=== PATIENT | male | born 1985 | race African-American/Black ===

== ENCOUNTER 2019-06-11 23:48 | Emergency (ER) | payer SELFPAY ==
[~2019-06-11] VITALS: Ht 177 cm; Wt 85.0 kg
[2019-06-11 23:55] VITALS: BP 113/67
[2019-06-12] MEDS ORDERED: AMOXICILLIN 500 MG (POLYMOX) CAP PO STA (00:06)
[2019-06-12] MEDS ORDERED: IBUPROFEN 800 MG (MOTRIN) TAB PO STA (00:06)
--- NOTE | 2019-06-12 00:14 | ED EENT ---
History of Present Illness General Chief Complaint: Dental Problems/Pain Stated Complaint: DENTAL PAIN Source: patient Exam Limitations: no limitations History of Present Illness Date Seen by Provider: Jun 11, 2019 Time Seen by Provider: 23:55 Initial Comments Here with report of pain in the right upper posterior aspect where he feels like there is a screw loose and it's poking him. Apparently had a broken jaw a year ago in [place] and had dental appliance which appears to be a bar to the upper jaw placed. He has not sought follow-up since. States that he noted something wa s loose and it's poking him. Complaints of pain related to that. Denies other concerns. Timing/Duration: abrupt Severity: moderate Location: mouth, dental Associated Symptoms: facial pain/swelling; No fever Allergies and Home Medications Allergies Coded Allergies: No Known Drug Allergies (Unverified , 06/12/19) Patient Home Medication List Home Medication List Reviewed: Yes Review of Systems Review of Systems Constitutional: no symptoms reported Mouth: see HPI, pain; denies swelling Throat: no symptoms reported Respiratory: no symptoms reported Cardiovascular: no symptoms reported Past Spropbm-Mootru-Fattok Hx Past Med/Social Hx: Reviewed Nursing Past Med/Soc Hx Patient Social History Alcohol Use: Occasionally Uses Recent Foreign Travel: No Contact w/Someone Who Travel: No Past Medical History Surgeries: Yes Orthopedic Respiratory: No Cardiac: No Physical Exam Height, Weight, BMI Height: '" Weight: lbs. oz. kg; BMI Method: General Appearance: WD/WN, mild distress Mouth/Throat: other (has metal bar structure across the upper jaw in the upper gumline. Posterior aspect on the right has what appears to be a screw head that is mobile and seems to be causing him pain. This was grasped and easily removed from the tissue and noted to be appliance screw. Surrounding erythema noted but no purulent drainage.) Neck: full range of motion, supple Neurologic/Psychiatric: alert, oriented x 3 Skin: normal color, warm/dry Progress/Results/Core Measures Progress Progress Note : Progress Note Seen and evaluated. Inspection of mouth revealed loose screw to the posterior aspect on the right upper and the and of the orthopedic appliance bar that had been previously placed. This was grasped and easily removed by Arelis forceps. Given that this was within the tissue structure and does seem to be irritated, we will go ahead and initiate antibiotics to decrease chance of infection. Patient was urged to follow-up with oral maxillofacial surgery. I did give him information on who to call. We will initiate antibiotic outpatient. Was given amoxicillin 1000 mg by mouth now as well as hydrocodone 5/325 and ibuprofen 800 mg by mouth. Discharged home with return precautions. Patient verbalize understanding instructions and agreement with plan. Departure Impression Primary Impression: Foreign body in mouth, initial encounter Disposition: HOME, SELF-CARE Condition: Improved Departure-Patient Inst. Decision time for Depature: 00:14 Referrals: JANY BRAY DDS NO,LOCAL PHYSICIAN (PCP) Primary Care Physician Patient Instructions: Dental Pain (DC) Add. Discharge Instructions: All discharge instructions reviewed with patient and/or family. Voiced understanding. You have a screw that came loose from the end of the dental/orthopedic appliance that was applied when you had a broken jaw. This screw was removed. The tissue around there is slightly irritated so you will be initiated on antibiotics. Make sure that you pick those up at the pharmacy and take them as directed. You should continue to brush her teeth twice daily and rinse mouth with warm saltwater solution. You may make the salt water solution by putting 1 teaspoon of table salt and one cup of warm water. Rinse thoroughly inspected. Do not drink solution. It is important that you follow-up with dental surgeon. You may call the one listed or of your choosing and make appointment for recheck and further evaluation. You may take ibuprofen 800 mg every 8 hours as needed for pa in. You may also take Tylenol/acetaminophen 1000 mg every 8 hours as needed for pain. Return for worse pain, swelling, fever, foul-smelling drainage or other concerns as needed. Scripts Amoxicillin (Amoxicillin) 500 Mg Capsule 500 MG PO TID, #21 CAP 0 Refills Prov: LALITO MILLAN MD 06/12/19 LALITO MILLAN MD Jun 12, 2019 00:13
[2019-06-12] MEDS ORDERED: HYDROcodone/APAP 5 MG/325 MG (LORTAB) TAB PO ONE (00:15)
[2019-06-12] MEDS ORDERED: AMOX500C2 PO (00:16)
== END 2019-06-12 00:23 | disposition home or self-care (01) ==
LOC: ER 23:51
DX: T18.0XXA Foreign body in mouth, initial encounter (principal)
CPT/HCPCS: 99283

== ENCOUNTER → 2019-06-22 | Emergency (ER) | payer OTHER ==
[~2019-06-22] VITALS: Ht 180.3 cm; Wt 81.1 kg
[~2019-06-22] MED LIST: AMOX500C2 PO; ASPIRIN 81 MG CHEW (CHILDREN'S ASA) PO ONE; NITROGLYCERIN 0.4 MG SL TABS BTL 25'S SL ONE; NS IV 1000 ML 1,000 ML IV SCH
[2019-06-22 10:42] VITALS: BP 123/85
[2019-06-22 11:06] LABS: BASOPHILS % (AUTO) 0 % (0-10); EOSINOPHILS % (AUTO) 0 % (0-10); HEMATOCRIT 45 % (40-54); HEMOGLOBIN 15.4 G/DL (13.3-17.7); LYMPHOCYTES % (AUTO) 13 % (12-44); MEAN CORPUSCULAR HEMOGLOBIN 27 PG (25-34); MEAN CORPUSCULAR HGB CONC 34 G/DL (32-36); MEAN CORPUSCULAR VOLUME 78 FL (80-99); MEAN PLATELET VOLUME 9.6 FL (7.4-10.4); MONOCYTES # (AUTO) 0.5 X 10^3 (0.0-1.0); MONOCYTES % (AUTO) 6 % (0-12); NEUTROPHILS # (AUTO) 6.6 X 10^3 (1.8-7.8); NEUTROPHILS % (AUTO) 81 % (42-75); PLATELET COUNT 393 10^3/uL (130-400); RED CELL DISTRIBUTION WIDTH 15.6 % (10.0-14.5); WHITE BLOOD COUNT 8.2 10^3/uL (4.3-11.0)
--- OUTSIDE RECORDS SUMMARY | 2019-06-22 11:06 | XMS REPORT | Continuity of Care Document ---
Author Organization Unknown Address Unknown Phone Unavailable Allergies Active Description Code Type Severity Reaction Onset Reported/Identified Relationship to Patient Clinical Status Yes No Known Drug Allergies [id number] Drug Allergy Unknown N/A 06/12/2019 Medications There is no data. Problems Date Dx Coded Attending Type Code Diagnosis Diagnosed By 06/12/2019 LALITO MILLAN MD Ot K08.89 OTHER SPECIFIED DISORDERS OF TEETH AND S 06/12/2019 LALITO MILLAN MD Ot T18.0XXA FOREIGN BODY IN MOUTH, INITIAL ENCOUNTER 06/14/2019 LALITO MILLAN MD Ot K08.89 OTHER SPECIFIED DISORDERS OF TEETH AND S 06/14/2019 LALITO MILLAN MD Ot T18.0XXA FOREIGN BODY IN MOUTH, INITIAL ENCOUNTER Procedures There is no data. Results There is no data. Encounters ACCT No. Visit Date/Time Discharge Status Pt. Type Provider Facility Loc./Unit Complaint [id number] 06/11/2019 23:51:00 020 00:23:00 DIS Emergency LALITO MILLAN MD [facility] ER DENTAL PAIN
[2019-06-22 11:12] LABS: PROTHROMBIN TIME PATIENT 13.1 SEC (12.2-14.7)
[2019-06-22 11:23] LABS: BILIRUBIN,URINE NEGATIVE (NEGATIVE); CLARITY,URINE CLEAR; COLOR,URINE YELLOW; GLUCOSE, URINE (UA) NEGATIVE (NEGATIVE); KETONES,URINE 1+ (NEGATIVE); LEUKOCYTE ESTERASE ,URINE NEGATIVE (NEGATIVE); NITRITE,URINE NEGATIVE (NEGATIVE); PH,URINE 5.5 (5-9); PROTEIN,URINE NEGATIVE (NEGATIVE)
[2019-06-22 11:23] LABS: ALANINE AMINOTRANSFERASE 37 U/L (0-55); ALBUMIN 4.6 GM/DL (3.2-4.5); ALKALINE PHOSPHATASE 56 U/L (40-136); AMYLASE 44 U/L (25-125); BILIRUBIN,TOTAL 0.5 MG/DL (0.1-1.0); BUN/CREATININE RATIO 10; CALCIUM 9.5 MG/DL (8.5-10.1); CARBON DIOXIDE 14 MMOL/L (21-32); CHLORIDE 99 MMOL/L (98-107); CREATINE KINASE 1079 U/L (30-200); CREATININE SERUM 1.45 MG/DL (0.60-1.30); GFR ESTIMATED > 60; GLUCOSE 78 MG/DL (70-105); LIPASE 13 U/L (8-78); MAGNESIUM 1.8 MG/DL (1.6-2.4); POTASSIUM 4.3 MMOL/L (3.6-5.0); SODIUM 133 MMOL/L (135-145); TOTAL PROTEIN 8.1 GM/DL (6.4-8.2)
[2019-06-22 11:30] LABS: BACTERIA,URINE TRACE /HPF; SQUAMOUS EPITHELIAL CELL,UR RARE /HPF; WBC,URINE RARE /HPF
--- NOTE | 2019-06-22 11:33 | ED Chest Pain ---
General Chief Complaint: Chest Pain Stated Complaint: CHEST PAIN Nursing Triage Note: Pt reports turning himself into police for active warrants. Upon being arrest, pt began having cp that he states as sharp and shooting. Rates pain 10/03. Pt does report using meth, cocain, marijuana, and ecstasy two hour prior to arrival to ER. Nursing Sepsis Screen: No Definite Risk History of Present Illness Date Seen by Provider: Jun 22, 2019 Time Seen by Provider: 11:00 Initial Comments 33 year old male presents with chest pain. He denies nausea, vomiting or diaphoresis. He used multiple illicit drugs this morning (uses these drugs regularly), had a disagreement about outstanding warrants with his girlf jimi, she threatened to call the police, so he decided to turn himself in. While being arrested and plans to transport to [facility], he began having chest pain 11/03. It has continued, no history of cardiac disease. His mother from CAD. No hx of DM. Timing/Duration: 1-3 hours Severity/Quality: moderate Location: substernal Radiation: no radiation Activities at Onset: emotional stress (being arrested) Prior CP/Workup: no prior chest pain ASA po POLICEMAN: No NTG SL POLICEMAN: No Associated Symptoms: denies symptoms Allergies and Home Medications Allergies Coded Allergies: No Known Drug Allergies (Unverified , 06/12/19) Home Medications Amoxicillin 500 Mg Capsule, 500 MG PO TID Prescribed by: LALITO MILLAN on 06/12/19 0016 Patient Home Medication List Home Medication List Reviewed: Yes Review of Systems Review of Systems Constitutional: no symptoms reported, see HPI Cardiovascular: See HPI, Chest Pain Gastrointestinal: No Symptoms Reported, See HPI; Denies Nausea All Other Systems Reviewed Negative Unless Noted: Yes Past Bqcfezt-Qtocxq-Pokhdy Hx Past Med/Social Hx: Reviewed Nursing Past Med/Soc Hx Patient Social History Alcohol Use: Occasionally Uses Number of Drinks Today: AA Alcohol Beverage of Choice: Beer Recreational Drug Use: Yes Drug of Choice: ecstasy, marijuana, meth, cocaine Type Used: Cigarettes 2nd Hand Smoke Exposure: Yes Recent Foreign Travel: No Contact w/Someone Who Travel: No Recent Infectious Disease Expo: No Recent Hopitalizations: No Physical Abuse: No Sexual Abuse: No Seasonal Allergies Seasonal Allergies: No Past Medical History Surgeries: Yes Orthopedic Respiratory: No Cardiac: No Neurological: No Genitourinary: No Gastrointestinal: No Musculoskeletal: No Endocrine: No HEENT: No Cancer: No Psychosocial: No Integumentary: No Blood Disorders: No Physical Exam Vital Signs Vital Signs - First Documented 06/22/19 10:42 Temp 36.9 Pulse 109 Resp 14 B/P (MAP) 123/85 (98) Pulse Ox 99 O2 Delivery Room Air Capillary Refill : Less Than 3 Seconds Height, Weight, BMI Height: '" Weight: lbs. oz. kg; 24.00 BMI Method: General Appearance: No Apparent Distress, WD/WN HEENT: PERRL/EOMI, TMs Normal, Normal ENT Inspection, Pharynx Normal Neck: Full Range of Motion, Normal Inspection, Non Tender, Supple Respiratory: Chest Non Tender, Lungs Clear, Normal Breath Sounds Cardiovascular: Regular Rate, Rhythm, No Edema, No JVD, Normal Peripheral Puls es, Diastolic Murmur, Tachycardia Gastrointestinal: Normal Bowel Sounds, Non Tender, Soft Neurologic/Psychiatric: Alert, Oriented x3, No Motor/Sensory Deficits, Normal Mood/Affect Skin: Normal Color, Warm/Dry Progress/Results/Core Measures Results/Orders Lab Results Laboratory Tests Test 06/22/19 10:48 06/22/19 11:10 06/22/19 13:21 Range/Units White Blood Count 8.2 4.3-11.0 10^3/uL Red Blood Count 5.76 4.35-5.85 10^6/uL Hemoglobin 15.4 13.3-17.7 G/DL Hematocrit 45 40-54 % Mean Corpuscular Volume 78 L 80-99 FL Mean Corpuscular Hemoglobin 27 25-34 PG Mean Corpuscular Hemoglobin Concent 34 32-36 G/DL Red Cell Distribution Width 15.6 H 10.0-14.5 % Platelet Count 393 130-400 10^3/uL Mean Platelet Volume 9.6 7.4-10.4 FL Neutrophils (%) (Auto) 81 H 42-75 % Lymphocytes (%) (Auto) 13 12-44 % Monocytes (%) (Auto) 6 0-12 % Eosinophils (%) (Auto) 0 0-10 % Basophils (%) (Auto) 0 0-10 % Neutrophils # (Auto) 6.6 1.8-7.8 X 10^3 Lymphocytes # (Auto) 1.0 1.0-4.0 X 10^3 Monocytes # (Auto) 0.5 0.0-1.0 X 10^3 Eosinophils # (Auto) 0.0 0.0-0.3 10^3/uL Basophils # (Auto) 0.0 0.0-0.1 10^3/uL Prothrombin Time 13.1 12.2-14.7 SEC INR Comment 1.0 0.8-1.4 Activated Partial Thromboplast Time 27 24-35 SEC Sodium Level 133 L 135-145 MMOL/L Potassium Level 4.3 3.6-5.0 MMOL/L Chloride Level 99 98-107 MMOL/L Carbon Dioxide Level 14 L 21-32 MMOL/L Anion Gap 20 H 5-14 MMOL/L Blood Urea Nitrogen 15 7-18 MG/DL Creatinine 1.45 H 0.60-1.30 MG/DL Estimat Glomerular Filtration Rate > 60 BUN/Creatinine Ratio 10 Glucose Level 78 70-105 MG/DL Calcium Level 9.5 8.5-10.1 MG/DL Corrected Calcium 8.5-10.1 MG/DL Magnesium Level 1.8 1.6-2.4 MG/DL Total Bilirubin 0.5 0.1-1.0 MG/DL Aspartate Amino Transf (AST/SGOT) 31 5-34 U/L Alanine Aminotransferase (ALT/SGPT) 37 0-55 U/L Alkaline Phosphatase 56 40-136 U/L Total Creatine Kinase 1079 H 30-200 U/L Creatine Kinase MB 9.1 *H <6.6 NG/ML Myoglobin 435.5 H 10.0-92.0 NG/ML Troponin I < 0.028 < 0.028 <0.028 NG/ML B-Type Natriuretic Peptide < 10.0 <100.0 PG/ML Total Protein 8.1 6.4-8.2 GM/DL Albumin 4.6 H 3.2-4.5 GM/DL Amylase Level 44 25-125 U/L Lipase 13 8-78 U/L Serum Alcohol 146 H <10 MG/DL Urine Color YELLOW Urine Clarity CLEAR Urine pH 5.5 5-9 Urine Specific Staples 1.015 L 1.016-1.022 Urine Protein NEGATIVE NEGATIVE Urine Glucose (UA) NEGATIVE NEGATIVE Urine Ketones 1+ H NEGATIVE Urine Nitrite NEGATIVE NEGATIVE Urine Bilirubin NEGATIVE NEGATIVE Urine Urobilinogen 0.2 < = 1.0 MG/DL Urine Leukocyte Esterase NEGATIVE NEGATIVE Urine RBC (Auto) NEGATIVE NEGATIVE Urine RBC NONE /HPF Urine WBC RARE /HPF Urine Squamous Epithelial Cells RARE /HPF Urine Crystals NONE /LPF Urine Bacteria TRACE /HPF Urine Casts NONE /LPF Urine Mucus NEGATIVE /LPF Urine Culture Indicated NO Urine Opiates Screen NEGATIVE NEGATIVE Urine Oxycodone Screen NEGATIVE NEGATIVE Urine Methadone Screen NEGATIVE NEGATIVE Urine Propoxyphene Screen NEGATIVE NEGATIVE Urine Barbiturates Screen NEGATIVE NEGATIVE Ur Tricyclic Antidepressants Screen NEGATIVE NEGATIVE Urine Phencyclidine Screen NEGATIVE NEGATIVE Urine Amphetamines Screen POSITIVE H NEGATIVE Urine Methamphetamines Screen POSITIVE H NEGATIVE Urine Benzodiazepines Screen NEGATIVE NEGATIVE Urine Cocaine Screen POSITIVE H NEGATIVE Urine Cannabinoids Screen NEGATIVE NEGATIVE My Orders Orders - JUSTIN CALLES APPLIED MATHEMATICIAN Ed Iv/Invasive Line Start (06/22/19 11:23) Ns Iv 1000 Ml (Sodium Chloride 0.9%) (06/22/19 11:23) Nitroglycerin 0.4 Mg Btl 25's (Nitrostat (06/22/19 12:00) Ed Iv/Invasive Line Start (06/22/19 12:24) Ns Iv 1000 Ml (Sodium Chloride 0.9%) (06/22/19 12:24) Troponin I (06/22/19 13:14) Medications Given in ED Current Medications Medications Dose Ordered Sig/Asuncion Route Start Time Stop Time Status Last Admin Dose Admin Aspirin 324 mg ONCE ONCE PO 06/22/19 11:00 06/22/19 11:01 DC 06/22/19 11:06 324 MG Nitroglycerin 1 BOTTLE ONCE ONCE SL 06/22/19 12:00 06/22/19 12:01 DC 06/22/19 12:01 0.4 MG Vital Signs/I&O 06/22/19 06/22/19 10:42 10:42 Temp 36.9 Pulse 109 Resp 14 B/P (MAP) 123/85 (98) Pulse Ox 99 O2 Delivery Room Air Blood Pressure Mean: 98 Progress Progress Note : Time: 11:00 Progress Note Patient seen and evaluated, will obtain labs, EKG and chest x-ray. Normal saline 1 L per IV and aspirin 324 mg orally. 1140 patient continues to complain of pain 8-910, will give nitroglycerin 1 sublingual and monitor blood pressure. Currently in the 120s over 80s. Heart rate in 90s. 1220 blood pressure 98/57 after nitroglycerin, patient does report pain is subsiding. He is sleepy, but easily aroused. Will give NS [address] L[address] Domínguez, recommended repeat Troponin, if neg, discharge with cardiac follow up. 1240 Plan discussed with law enforcement and patient. No complaints at this time. 1335 Patient resting, easily aroused, reports pain has improved. Drinking water. B/P 112/78, HR 70s 1430 Repeat Troponin neg. discharge instructions and return precautions reviewed with patient. All questions answered Initial ECG Impression Date: Jun 22, 2019 Initial ECG Impression Time: 10:47 Initial ECG Rate: 101 Initial ECG Rhythm: S.Tach Initial ECG Intervals: Normal Initial ECG Intervals NM 160, QRSD 71, QT 335, QTC 435. [place] P 40, QRS 31, T 43. Initial ECG Impression: Normal Initial ECG Comparisson: No Previous ECG Available Comment Reviewed with Dr. Yanes, agreed with interpretation. Departure Impression Primary Impression: Chest pain Qualified Codes: R07.9 - Chest pain, unspecified Disposition: HOME, SELF-CARE Condition: Stable Departure-Patient Inst. Referrals: [facility]/JOSE ANGEL SAENZ MD NO,LOCAL PHYSICIAN (PCP) Primary Care Physician Patient Instructions: Chest Pain That Is Not Caused by the Heart (DC) Add. Discharge Instructions: Follow up with Cardiology for continued chest pain, call Dr. Domínguez for appt. Take Aspirin 81 mg daily. Take Ibuprofen 600 mg every 8 hours, for pain. Increase water intake: 16 oz every 2 hours while awake. Return to the emergency department for new, urgent health care problems. All discharge instructions reviewed with patient and/or family. Voiced understanding. JUSTIN CALLES Jun 22, 2019 11:33
[2019-06-22 11:34] LABS: AMPHETAMINE SCREEN, URINE POSITIVE (NEGATIVE); BARBITURATE SCREEN URINE NEGATIVE (NEGATIVE); BENZODIAZEPINES SCREEN URINE NEGATIVE (NEGATIVE); CANNABINOID SCREEN, URINE NEGATIVE (NEGATIVE); COCAINE SCREEN URINE POSITIVE (NEGATIVE); METHADONE STAT NEGATIVE (NEGATIVE); METHAMPHETAMINE SCREEN URINE S POSITIVE (NEGATIVE); OPIATE SCREEN URINE NEGATIVE (NEGATIVE); OXYCODONE STAT NEGATIVE (NEGATIVE); PROPOXYPHENE STAT NEGATIVE (NEGATIVE); TRICYCLIC ANTIDEPRESSANTS SCRE NEGATIVE (NEGATIVE)
[2019-06-22 11:39] LABS: CREATINE KINASE MB 9.1 NG/ML (<6.6)
--- NOTE | 2019-06-22 12:12 | Diagnostic Imaging Report ---
INDICATION: Chest pain. EXAMINATION: Frontal chest obtained at 11:30 a.m. FINDINGS: Heart and mediastinal silhouette are normal in appearance. Lungs are clear. There is no pneumothorax or pleural fluid. IMPRESSION: Negative chest. Dictated by: Dictated on workstation # [id number]
== END | disposition home or self-care (01) ==
LOC: EDUNIT# 10:42 → ER 10:43
DX: R07.2 Precordial pain (principal); Z77.22 Contact with and (suspected) exposure to environmental tobacco smoke (acute) (chronic)
CPT/HCPCS: 36415; 71045; 80053; 80306; 80320; 81000; 82150; 82550; 82553; 83690; 83735; 83874; 83880; 84484; 85025; 85610; 85730; 93005; 93041

== ENCOUNTER 2019-11-27 22:58 | Emergency (ER) | payer SELFPAY ==
[~2019-11-27] VITALS: Ht 167 cm; Wt 85.0 kg
[~2019-11-27 22:58] MED LIST changes: -ASPIRIN 81 MG CHEW (CHILDREN'S ASA) PO ONE; -NITROGLYCERIN 0.4 MG SL TABS BTL 25'S SL ONE; -NS IV 1000 ML 1,000 ML IV SCH
[2019-11-27] MEDS ORDERED: NS IV 1000 ML 1,000 ML IV ONE (23:04)
[2019-11-27] MEDS ORDERED: fentaNYL INJECTION 100 MCG/2 ML AMP IVP ONE (23:15)
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
[2019-11-27 23:17] LABS: HEMOGLOBIN 15.3 g/dL (13.3-17.7); MEAN PLATELET VOLUME 9.2 fL (9.0-12.2); WHITE BLOOD COUNT 6.7 10^3/uL (4.3-11.0)
[2019-11-27 23:28] LABS: ALBUMIN 4.2 GM/DL (3.2-4.5); CHLORIDE 105 MMOL/L (98-107); POTASSIUM 4.3 MMOL/L (3.6-5.0); SODIUM 140 MMOL/L (135-145)
[2019-11-27 23:29] LABS: CALCIUM 9.2 MG/DL (8.5-10.1)
[2019-11-27 23:30] LABS: GLUCOSE 94 MG/DL (70-105); TOTAL PROTEIN 7.8 GM/DL (6.4-8.2)
[2019-11-27 23:31] LABS: CARBON DIOXIDE 19 MMOL/L (21-32)
[2019-11-27 23:32] LABS: BILIRUBIN,TOTAL 0.2 MG/DL (0.1-1.0)
[2019-11-27 23:34] LABS: ALKALINE PHOSPHATASE 60 U/L (40-136); CREATININE SERUM 1.15 MG/DL (0.60-1.30); GFR ESTIMATED > 60
[2019-11-27 23:35] LABS: BILIRUBIN,DIRECT < 0.1 MG/DL (0.0-0.3); BILIRUBIN,INDIRECT 0.1 MG/DL; BUN/CREATININE RATIO 9
[2019-11-27 23:37] LABS: ALANINE AMINOTRANSFERASE 42 U/L (0-55)
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
--- NOTE | 2019-11-28 00:25 | NUR ---
Pt back from CT.
[2019-11-28 00:37] LABS: BILIRUBIN,URINE NEGATIVE (NEGATIVE); CLARITY,URINE CLEAR; COLOR,URINE YELLOW; GLUCOSE, URINE (UA) NEGATIVE (NEGATIVE); KETONES,URINE NEGATIVE (NEGATIVE); LEUKOCYTE ESTERASE ,URINE NEGATIVE (NEGATIVE); NITRITE,URINE NEGATIVE (NEGATIVE); PROTEIN,URINE NEGATIVE (NEGATIVE)
[2019-11-28] MEDS ORDERED: fentaNYL INJECTION 100 MCG/2 ML AMP IVP ONE (00:45)
--- NOTE | 2019-11-28 00:55 | NUR ---
Pt c/o pain to his right knee; small skin tear noted to this knee. Dr. Guadalupe ordered more pain medication; meds given. Pt A&Ox4. VSS. Pt denies any other pain. [id number].
[2019-11-28 00:58] LABS: BACTERIA,URINE NEGATIVE /HPF; SQUAMOUS EPITHELIAL CELL,UR RARE /HPF
[2019-11-28] MEDS ORDERED: CYCL10TA9 PO (01:33)
[2019-11-28] MEDS ORDERED: TRM50T PO (01:33)
[2019-11-28] MEDS ORDERED: RX-TRAMADOL 50 MG (ULTRAM) TAB PPK#4 PO STA (01:35)
[2019-11-28] MEDS ORDERED: KETOROLAC 30 MG/ML VIAL IVP ONE (01:45)
[2019-11-28 02:09] VITALS: BP 139/101
--- NOTE | 2019-11-28 02:09 | NUR ---
Right knee cleansed with soap and water; bandage and IRVIN wrap applied for comfort. Crutch education provided.
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
--- NOTE | 2019-11-28 07:26 | Diagnostic Imaging Report ---
Indication: Pelvic injury with pain. Comparison: None. Discussion: Single AP view of the pelvis was obtained. Heterotopic bone formation noted along the right greater trochanter. Otherwise no fracture or dislocation. Alignment is anatomic. Soft tissues are unremarkable. Impression: 1. Negative pelvis. Dictated by: Dictated on workstation # [id number]
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
== END 2019-11-28 02:15 | disposition home or self-care (01) ==
LOC: EDUNIT# 22:58 → ER 23:01
DX: S06.0X0A Concussion without loss of consciousness, initial encounter (principal); S80.211A Abrasion, right knee, initial encounter; R40.2410 Glasgow coma scale score 13-15, unspecified time; F17.210 Nicotine dependence, cigarettes, uncomplicated; V09.9XXA Pedestrian injured in unspecified transport accident, initial encounter
CPT/HCPCS: 70450; 71045; 71260; 72125; 72170; 73552; 73590; 74177; 80048; 80076; 81000; 85027; 93005; 99284; G0480; 36415; 80320

== ENCOUNTER 2019-11-28 08:50 | Emergency (ER) | payer SELFPAY ==
[~2019-11-28] VITALS: Ht 167.7 cm; Wt 86.2 kg
[~2019-11-28 08:50] MED LIST changes: +CYCL10TA9 PO; +TRM50T PO
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
[2019-11-28] MEDS ORDERED: RX-TRAMADOL 50 MG (ULTRAM) TAB PPK#4 PO STA (12:40)
[2019-11-28] MEDS ORDERED: RX-CYCLOBENZAPRINE 10 MG (FLEXERIL) TAB PPK#3 PO STA (12:48)
[2019-11-28 13:57] VITALS: BP 129/90
== END 2019-11-28 13:57 | disposition home or self-care (01) ==
LOC: EDUNIT# 08:50 → ER 08:51
DX: M79.604 Pain in right leg (principal); Z77.22 Contact with and (suspected) exposure to environmental tobacco smoke (acute) (chronic)
CPT/HCPCS: 99283

== ENCOUNTER 2021-02-18 20:45 | Emergency (ER) | payer SELFPAY ==
[~2021-02-18] VITALS: Ht 172 cm; Wt 80.0 kg
[~2021-02-18 20:45] MED LIST changes: +CYCL10TA25 PO; -CYCL10TA9 PO
[2021-02-18] MEDS ORDERED: ONDANSETRON 4 MG/2 ML (SDV) Z0FRAN ONE (20:52)
--- NOTE | 2021-02-18 20:54 | ED General ---
General Stated Complaint: CP Source of Information: Patient, EMS Exam Limitations: No Limitations (CAMI ARNETT APRN) History of Present Illness Date Seen by Provider: Feb 18, 2021 Time Seen by Provider: 20:53 Initial Comments To ER by EMS from family's house with reports of chest pain. On arrival he is somewhat lethargic, states that he has chest pain anytime that he gets "stressed out". He has had some alcohol to drink tonight. He is tearful on arrival. He states "I just want to go home". Timing/Duration: 1-3 Hours Severity: Moderate Associated Systoms: Chest Pain (CAMI ARNETT APRN) Allergies and Home Medications Allergies Coded Allergies: No Known Drug Allergies (Unverified , 06/12/19) Patient Home Medication List Home Medication List Reviewed: Yes (CAMI ARNETT APRN) Amoxicillin (Amoxicillin) 500 Mg Capsule, 500 MG PO TID Prescribed by: LALITO MILLAN on 06/12/19 0016 Cyclobenzaprine HCl (Cyclobenzaprine HCl) 10 Mg Tablet, 10 MG PO Q8H PRN for SPASMS Prescribed by: MILVIA LANDRUM on 11/28/19 013 Tramadol HCl (Tramadol HCl) 50 Mg Tablet, 50 MG PO Q4H PRN for PAIN-BREAKTHROUGH Prescribed by: MILVIA LANDRUM on 11/28/19132 Review of Systems Review of Systems Constitutional: see HPI EENTM: see HPI Respiratory: no symptoms reported Cardiovascular: no symptoms reported Genitourinary: no symptoms reported Musculoskeletal: no symptoms reported Skin: no symptoms reported Psychiatric/Neurological: No Symptoms Reported Hematologic/Lymphatic: No Symptoms Reported (CAMI ARNETT APRN) Past Aaybksh-Jjrspb-Ccorpa Hx Immunizations Up To Date Tetanus Booster (TDap): Less than 5yrs (CAMI ARNETT APRN) Seasonal Allergies Seasonal Allergies: No (CAMI ARNETT APRN) Past Medical History Surgeries: Yes Orthopedic Respiratory: No Cardiac: No Neurological: No Genitourinary: No Gastrointestinal: No Musculoskeletal: No Endocrine: No HEENT: No Cancer: No Psychosocial: No Integumentary: No Blood Disorders: No (CAMI ARNETT APRN) Physical Exam Vital Signs Vital Signs - First Documented 02/18/21 20:52 Pulse 79 Resp 16 B/P (MAP) 145/95 (112) Pulse Ox 98 O2 Delivery Room Air (SHALA GONZALES MD) Vital Signs Capillary Refill : (CAMI ARNETT APRN) Height, Weight, BMI Height: '" Weight: lbs. oz. kg; 30.00 BMI Method: General Appearance: No Apparent Distress, WD/WN Eyes: Bilateral Eye Normal Inspection, Bilateral Eye PERRL, Bilateral Eye EOMI Respiratory: Lungs Clear, Normal Breath Sounds, No Accessory Muscle Use, No Respiratory Distress Cardiovascular: Regular Rate, Rhythm, Normal Peripheral Pulses Gastrointestinal: Normal Bowel Sounds, Non Tender, Soft Extremity: Normal Capillary Refill, Normal Inspection Neurologic/Psychiatric: Alert, Oriented x3 Skin: Normal Color, Warm/Dry (CAMI ARNETT APRN) Progress/Results/Core Measures Suspected Sepsis SIRS Temperature: Pulse: Respiratory Rate: Laboratory Tests 02/18/21 20:55: White Blood Count 6.1 Blood Pressure / Mean: Laboratory Tests 02/18/21 20:55: Creatinine 0.95, INR Comment 0.9, Platelet Count 237, Total Bilirubin 0.4 (CAMI ARNETT APRN) Results/Orders Lab Results Laboratory Tests Test 02/18/21 20:55 02/18/21 21:10 Range/Units White Blood Count 6.1 4.3-11.0 10^3/uL Red Blood Count 5.49 4.30-5.52 10^6/uL Hemoglobin 14.4 13.3-17.7 g/dL Hematocrit 44 40-54 % Mean Corpuscular Volume 80 80-99 fL Mean Corpuscular Hemoglobin 26 25-34 pg Mean Corpuscular Hemoglobin Concent 33 32-36 g/dL Red Cell Distribution Width 14.6 H 10.0-14.5 % Platelet Count 237 130-400 10^3/uL Mean Platelet Volume 9.3 9.0-12.2 fL Immature Granulocyte % (Auto) 0 % Neutrophils (%) (Auto) 48 42-75 % Lymphocytes (%) (Auto) 37 12-44 % Monocytes (%) (Auto) 13 H 0-12 % Eosinophils (%) (Auto) 1 0-10 % Basophils (%) (Auto) 0 0-10 % Neutrophils # (Auto) 2.9 1.8-7.8 10^3/uL Lymphocytes # (Auto) 2.3 1.0-4.0 10^3/uL Monocytes # (Auto) 0.8 0.0-1.0 10^3/uL Eosinophils # (Auto) 0.1 0.0-0.3 10^3/uL Basophils # (Auto) 0.0 0.0-0.1 10^3/uL Immature Granulocyte # (Auto) 0.0 0.0-0.1 10^3/uL Prothrombin Time 12.8 12.2-14.7 SEC INR Comment 0.9 0.8-1.4 Activated Partial Thromboplast Time 26 24-35 SEC Sodium Level 136 135-145 MMOL/L Potassium Level 3.5 L 3.6-5.0 MMOL/L Chloride Level 101 98-107 MMOL/L Carbon Dioxide Level 18 L 21-32 MMOL/L Anion Gap 17 H 5-14 MMOL/L Blood Urea Nitrogen 8 7-18 MG/DL Creatinine 0.95 0.60-1.30 MG/DL Estimat Glomerular Filtration Rate 108 BUN/Creatinine Ratio 8 Glucose Level 102 70-105 MG/DL Calcium Level 8.5 8.5-10.1 MG/DL Corrected Calcium 8.4 L 8.5-10.1 MG/DL Magnesium Level 1.9 1.6-2.4 MG/DL Total Bilirubin 0.4 0.1-1.0 MG/DL Aspartate Amino Transf (AST/SGOT) 37 H 5-34 U/L Alanine Aminotransferase (ALT/SGPT) 58 H 0-55 U/L Alkaline Phosphatase 55 40-136 U/L Myoglobin 250.5 H 10.0-92.0 NG/ML Troponin I < 0.028 <0.028 NG/ML B-Type Natriuretic Peptide < 10.0 <100.0 PG/ML Total Protein 7.4 6.4-8.2 GM/DL Albumin 4.1 3.2-4.5 GM/DL Acetaminophen Level < 10 L 10-30 UG/ML Serum Alcohol 300 H <10 MG/DL Urine Opiates Screen NEGATIVE NEGATIVE Urine Oxycodone Screen NEGATIVE NEGATIVE Urine Methadone Screen NEGATIVE NEGATIVE Urine Propoxyphene Screen NEGATIVE NEGATIVE Urine Barbiturates Screen NEGATIVE NEGATIVE Ur Tricyclic Antidepressants Screen NEGATIVE NEGATIVE Urine Phencyclidine Screen NEGATIVE NEGATIVE Urine Amphetamines Screen NEGATIVE NEGATIVE Urine Methamphetamines Screen NEGATIVE NEGATIVE Urine Benzodiazepines Screen NEGATIVE NEGATIVE Urine Cocaine Screen POSITIVE H NEGATIVE Urine Cannabinoids Screen NEGATIVE NEGATIVE (BRUEGGEMANN,SHALA T MD) My Orders Orders - SHALA GONZALES MD Ondansetron Injection (Zofran Injectio (02/18/21 20:52) (SHALA GONZALES MD) Medications Given in ED Current Medications Medications Dose Ordered Sig/Asuncion Route Start Time Stop Time Status Last Admin Dose Admin Ondansetron HCl 4 mg STK-MED ONCE .ROUTE 02/18/21 20:52 02/18/21 20:57 DC 02/18/21 21:03 4 MG (SHALA GONZALES MD) Vital Signs/I&O 02/18/21 02/18/21 02/18/21 20:52 20:52 21:57 Pulse 79 86 Resp 16 16 B/P (MAP) 145/95 (112) 145/96 Pulse Ox 98 97 98 O2 Delivery Room Air Room Air Room Air 02/19/21 00:00 Intake Total 1000 ml Balance 1000 ml (SHALA GONZALES MD) Vital Signs/I&O Capillary Refill : (CAMI ARNETT APRN) Departure Communication (Admissions) 2139- is at the bedside and will take him home. He is still asking to go home. (CAMI ARNETT APRN) Impression Primary Impression: Chest pain Additional Impression: Alcohol intoxication Disposition: 01 HOME, SELF-CARE Condition: Stable Departure-Patient Inst. Decision time for Depature: 21:35 (CAMI ARNETT APRN) Referrals: NO,LOCAL PHYSICIAN (PCP/Family) Primary Care Physician Patient Instructions: Alcohol Intoxication ED ATTENDING PHYSICIAN NOTE: I was physically present as attending physician in the emergency department during the care of this patient, but I was not directly involved in the decision making or delivery of care for this patient. (SHALA GONZALES MD) CAMI ARNETT APRN Feb 18, 2021 20:54 SHALA GONZALES MD Feb 19, 2021 07:35
[2021-02-18 21:02] LABS: BASOPHILS % (AUTO) 0 % (0-10); EOSINOPHILS # (AUTO) 0.1 10^3/uL (0.0-0.3); EOSINOPHILS % (AUTO) 1 % (0-10); HEMATOCRIT 44 % (40-54); HEMOGLOBIN 14.4 g/dL (13.3-17.7); LYMPHOCYTES # (AUTO) 2.3 10^3/uL (1.0-4.0); LYMPHOCYTES % (AUTO) 37 % (12-44); MEAN CORPUSCULAR HEMOGLOBIN 26 pg (25-34); MEAN CORPUSCULAR HGB CONC 33 g/dL (32-36); MEAN CORPUSCULAR VOLUME 80 fL (80-99); MEAN PLATELET VOLUME 9.3 fL (9.0-12.2); MONOCYTES # (AUTO) 0.8 10^3/uL (0.0-1.0); MONOCYTES % (AUTO) 13 % (0-12); NEUTROPHILS # (AUTO) 2.9 10^3/uL (1.8-7.8); NEUTROPHILS % (AUTO) 48 % (42-75); PLATELET COUNT 237 10^3/uL (130-400); WHITE BLOOD COUNT 6.1 10^3/uL (4.3-11.0)
[2021-02-18 21:11] LABS: INR 0.9 (0.8-1.4); PROTHROMBIN TIME PATIENT 12.8 SEC (12.2-14.7)
[2021-02-18 21:13] LABS: ALBUMIN 4.1 GM/DL (3.2-4.5); POTASSIUM 3.5 MMOL/L (3.6-5.0)
[2021-02-18 21:15] LABS: CALCIUM 8.5 MG/DL (8.5-10.1)
[2021-02-18 21:16] LABS: TOTAL PROTEIN 7.4 GM/DL (6.4-8.2)
[2021-02-18 21:18] LABS: BILIRUBIN,TOTAL 0.4 MG/DL (0.1-1.0)
[2021-02-18 21:20] LABS: CREATININE SERUM 0.95 MG/DL (0.60-1.30)
--- NOTE | 2021-02-18 21:20 | Diagnostic Imaging Report ---
EXAMINATION: Chest radiograph, portable AP view. DATE: 02/18/2021 9:15 PM. INDICATION: 35-year-old male, chest pain. COMPARISON: November 27, 2019. FINDINGS: Heart size and mediastinal contours are unchanged. There is no identified pneumothorax. There is no large pleural effusion. There is no identified focal airspace consolidation. IMPRESSION: No identified acute cardiopulmonary abnormality. Dictated by: Dictated on workstation # [id number]
[2021-02-18 21:22] LABS: MAGNESIUM 1.9 MG/DL (1.6-2.4)
[2021-02-18 21:28] LABS: ACETAMINOPHEN < 10 UG/ML (10-30)
[2021-02-18 21:32] LABS: AMPHETAMINE SCREEN, URINE NEGATIVE (NEGATIVE); BARBITURATE SCREEN URINE NEGATIVE (NEGATIVE); BENZODIAZEPINES SCREEN URINE NEGATIVE (NEGATIVE); CANNABINOID SCREEN, URINE NEGATIVE (NEGATIVE); COCAINE SCREEN URINE POSITIVE (NEGATIVE); METHADONE STAT NEGATIVE (NEGATIVE); METHAMPHETAMINE SCREEN URINE S NEGATIVE (NEGATIVE); OPIATE SCREEN URINE NEGATIVE (NEGATIVE); OXYCODONE STAT NEGATIVE (NEGATIVE); PROPOXYPHENE STAT NEGATIVE (NEGATIVE); TRICYCLIC ANTIDEPRESSANTS SCRE NEGATIVE (NEGATIVE)
[2021-02-18] MEDS ORDERED: LIDOCAINE 2% VISCOUS 15 ML UDC PO ONE (21:45)
[2021-02-18] MEDS ORDERED: ANTACID SUSP 30 ML UDC (MYLANTA) PO ONE (21:45)
[2021-02-18 21:57] VITALS: BP 145/96
== END 2021-02-18 22:00 | disposition home or self-care (01) ==
LOC: EDUNIT# 20:45 → ER 20:46
DX: F10.129 Alcohol abuse with intoxication, unspecified (principal); Y90.8 Blood alcohol level of 240 mg/100 ml or more
CPT/HCPCS: 71045; 80053; 80306; 83735; 83874; 83880; 84484; 85025; 85610; 85730; 93005; 93041; 99284; G0480 ×2; 36415; 80320; 80329

== ENCOUNTER 2021-03-09 01:08 | Emergency (ER) | payer SELFPAY ==
[~2021-03-09] VITALS: Ht 165 cm; Wt 80.0 kg
[2021-03-09] MEDS ORDERED: ASPIRIN 81 MG CHEW (CHILDREN'S ASA) PO ONE (01:30)
[2021-03-09 01:46] LABS: BASOPHILS % (AUTO) 0 % (0-10); EOSINOPHILS # (AUTO) 0.1 10^3/uL (0.0-0.3); EOSINOPHILS % (AUTO) 2 % (0-10); HEMATOCRIT 48 % (40-54); HEMOGLOBIN 15.7 g/dL (13.3-17.7); LYMPHOCYTES # (AUTO) 1.6 10^3/uL (1.0-4.0); LYMPHOCYTES % (AUTO) 21 % (12-44); MEAN CORPUSCULAR HEMOGLOBIN 27 pg (25-34); MEAN CORPUSCULAR HGB CONC 33 g/dL (32-36); MEAN CORPUSCULAR VOLUME 81 fL (80-99); MEAN PLATELET VOLUME 9.2 fL (9.0-12.2); MONOCYTES # (AUTO) 0.4 10^3/uL (0.0-1.0); MONOCYTES % (AUTO) 5 % (0-12); NEUTROPHILS # (AUTO) 5.8 10^3/uL (1.8-7.8); NEUTROPHILS % (AUTO) 72 % (42-75); PLATELET COUNT 345 10^3/uL (130-400)
[2021-03-09 02:04] LABS: ALBUMIN 4.4 GM/DL (3.2-4.5); INR 0.9 (0.8-1.4); PROTHROMBIN TIME PATIENT 12.8 SEC (12.2-14.7)
[2021-03-09 02:07] LABS: TOTAL PROTEIN 7.9 GM/DL (6.4-8.2)
[2021-03-09 02:09] LABS: BILIRUBIN,TOTAL 0.3 MG/DL (0.1-1.0)
[2021-03-09 02:11] LABS: CREATININE SERUM 1.06 MG/DL (0.60-1.30)
[2021-03-09 02:13] LABS: MAGNESIUM 2.3 MG/DL (1.6-2.4)
[2021-03-09 02:39] LABS: CREATINE KINASE MB 12.6 NG/ML (<6.6)
[2021-03-09] MEDS ORDERED: LACTATED RINGERS 1,000 ML IV ONE ×2 (02:45→03:45)
--- NOTE | 2021-03-09 02:51 | ED General ---
General Chief Complaint: Chest Pain Stated Complaint: CP Source of Information: Patient (VERY LIMITED HISTORIAN--FALLS ASLEEP MID - SENTENCE. ) History of Present Illness Date Seen by Provider: Mar 09, 2021 Time Seen by Provider: 01:15 Initial Comments PT ARRIVES VIA POV --AMBULATES IN ON HIS OWN. C/O CHEST PAIN--ONSET IS UNKNOWN DENIES SHORTNESS OF BREATH DENIES COUGH DENIES FEVER DENIES GI SYMPTOMS DENIES HEADACHE OR BODY ACHES DENIES LOSS OF TASTE OR SMELL PT STATES HE FELL ON CONCRETE TONIGHT, LANDING ON HIS FACE DENIES LOSS OF CONSCIOUSNESS DENIES NECK OR BACK PAIN DENIES HEADACHE DENIES VISION CHANGES DENIES PARESTHESIAS OR MOTOR DEFICITS. PT ADMITS TO DRINKING A "6 PACK" OF BEER TONIGHT, STATES HE "DOESN'T KNOW" IF HE HAD ANYTHING ELSE TO DRINK TONIGHT PT DENIES DRUG USE TONIGHT, BUT WAS HERE 02/18/21 FOR COMPLAINT OF CHEST PAIN AND PT WAS DRUNK AT THAT TIME ALSO AND WAS + FOR COCAINE PT STATES HE HAS NOT USED COCAINE OR ANY OTHER DRUGS SINCE THEN PT DOES SMOKE CIGARETTES PCP: NONE Allergies and Home Medications Allergies Coded Allergies: No Known Drug Allergies (Unverified , 06/12/19) Patient Home Medication List Home Medication List Reviewed: Yes Amoxicillin (Amoxicillin) 500 Mg Capsule, 500 MG PO TID Prescribed by: LALITO MILLAN on 06/12/19 001 Cyclobenzaprine HCl (Cyclobenzaprine HCl) 10 Mg Tablet, 10 MG PO Q8H PRN for SPASMS Prescribed by: MILVIA LANDRUM on 11/28/19 013 Tramadol HCl (Tramadol HCl) 50 Mg Tablet, 50 MG PO Q4H PRN for PAIN-BREAKTHROUGH Prescribed by: MILVIA LANDRUM on 11/28/19 013 Review of Systems Review of Systems Constitutional: no symptoms reported EENTM: see HPI Respiratory: no symptoms reported Cardiovascular: see HPI Gastrointestinal: no symptoms reported Genitourinary: no symptoms reported Musculoskeletal: no symptoms reported Skin: no symptoms reported Psychiatric/Neurological: No Symptoms Reported Hematologic/Lymphatic: No Symptoms Reported Immunological/Allergic: no symptoms reported Past Rsibokr-Xeeuoo-Kxrkxw Hx Patient Social History Tobacco Use?: Yes Tobacco type used: Cigarettes Smoking Status: Current Everyday Smoker Substance use?: Yes Substance type: Marijuana Additional substance use comme: COCAINE Alcohol Use?: Yes Alcohol type: Beer, Hard Liquor Alcohol Frequency: Couple times a week Immunizations Up To Date Tetanus Booster (TDap): Less than 5yrs Seasonal Allergies Seasonal Allergies: No Past Medical History Surgeries: Yes Orthopedic Respiratory: No Cardiac: No Neurological: No Genitourinary: No Gastrointestinal: No Musculoskeletal: No Endocrine: No HEENT: No Cancer: No Psychosocial: Yes (POLYSUBSTANCE ABUSE) Integumentary: No Blood Disorders: No Physical Exam Vital Signs Vital Signs - First Documented 03/09/21 01:18 Temp 36.8 Pulse 95 Resp 13 B/P (MAP) 124/82 (96) Pulse Ox 94 O2 Delivery Room Air Capillary Refill : Height, Weight, BMI Height: '" Weight: lbs. oz. kg; 27.00 BMI Method: General Appearance: No Apparent Distress, WD/WN, Other (PT IS LETHARGIC/DROWSY AND FALLS ASLEEP MID-SENTENCE, REQUIRING FREQUENT VERBAL AND TACTILE STIMULI TO WAKE PT UP. DOES NOT APPEAR TO BE IN ANY DISCOMFORT OR DISTRESS. REEKS OF ALCOHOL. APPEARS TO BE INTOXICATED AND/OR UNDER THE INFLUENCE OF SOME SUBSTANCE/S. PT IS FILTHY AND MALODOROUS AND UNKEMPT. ) HEENT: TMs Normal, Pharynx Normal, Moist Mucous Membranes, Other (PUPILS PINPOINT; SWELLING TO RIGHT JEW; LEFT PERIORIBITAL SWELLING AND BRUISING; SWELLING TO NOSE AND DRIED BLOOD IN BOTH NARES. NO DEFORMITY. ABRASIONS TO NOSE AND UPPER LIP; EYES VERY BLOODSHOT. NO DENTAL OR INTRA-ORAL INJURY. NO MANDIBULAR OR TMJ TENDERNESS. NO MIDFACE INSTABILITY. NO TRISMUS) Neck: Full Range of Motion, Normal Inspection, Non Tender, Supple Respiratory: Normal Breath Sounds, No Accessory Muscle Use, No Respiratory Distress, Other (MID AND UPPER CHEST TENDERNESS. NO CREPITANCE OR SUB Q AIR. NO EXTERNAL EVIDENCE OF TRAUMA TO CHEST. ) Cardiovascular: Regular Rate, Rhythm, No Edema, No JVD, No Murmur, Normal Lyubov pheral Pulses Gastrointestinal: Non Tender, Soft Back: Normal Inspection, No CVA Tenderness, No Vertebral Tenderness Extremity: Normal Capillary Refill, Normal Inspection, Normal Range of Motion, Non Tender, No Calf Tenderness, No Pedal Edema Neurologic/Psychiatric: Alert, No Motor/Sensory Deficits, Other (MENTATION NOTED ABOVE) Skin: Normal Color (PT IS BLACK), Warm/Dry, Tattoos/Piercings, Other (WOUNDS NOTED ABOVE. ) Progress/Results/Core Measures Suspected Sepsis SIRS Temperature: Pulse: Respiratory Rate: Laboratory Tests 03/09/21 01:25: White Blood Count 8.0 Blood Pressure / Mean: Laboratory Tests 03/09/21 01:25: Creatinine 1.06, INR Comment 0.9, Platelet Count 345, Total Bilirubin 0.3 Results/Orders Lab Results Laboratory Tests Test 03/09/21 01:25 03/09/21 01:30 03/09/21 03:37 Range/Units White Blood Count 8.0 4.3-11.0 10^3/uL Red Blood Count 5.90 H 4.30-5.52 10^6/uL Hemoglobin 15.7 13.3-17.7 g/dL Hematocrit 48 40-54 % Mean Corpuscular Volume 81 80-99 fL Mean Corpuscular Hemoglobin 27 25-34 pg Mean Corpuscular Hemoglobin Concent 33 32-36 g/dL Red Cell Distribution Width 14.5 10.0-14.5 % Platelet Count 345 130-400 10^3/uL Mean Platelet Volume 9.2 9.0-12.2 fL Immature Granulocyte % (Auto) 0 % Neutrophils (%) (Auto) 72 42-75 % Lymphocytes (%) (Auto) 21 12-44 % Monocytes (%) (Auto) 5 0-12 % Eosinophils (%) (Auto) 2 0-10 % Basophils (%) (Auto) 0 0-10 % Neutrophils # (Auto) 5.8 1.8-7.8 10^3/uL Lymphocytes # (Auto) 1.6 1.0-4.0 10^3/uL Monocytes # (Auto) 0.4 0.0-1.0 10^3/uL Eosinophils # (Auto) 0.1 0.0-0.3 10^3/uL Basophils # (Auto) 0.0 0.0-0.1 10^3/uL Immature Granulocyte # (Auto) 0.0 0.0-0.1 10^3/uL Prothrombin Time 12.8 12.2-14.7 SEC INR Comment 0.9 0.8-1.4 Activated Partial Thromboplast Time 27 24-35 SEC Sodium Level 136 135-145 MMOL/L Potassium Level 4.0 3.6-5.0 MMOL/L Chloride Level 104 98-107 MMOL/L Carbon Dioxide Level 18 L 21-32 MMOL/L Anion Gap 14 5-14 MMOL/L Blood Urea Nitrogen 11 7-18 MG/DL Creatinine 1.06 0.60-1.30 MG/DL Estimat Glomerular Filtration Rate 93 BUN/Creatinine Ratio 10 Glucose Level 101 70-105 MG/DL Calcium Level 9.0 8.5-10.1 MG/DL Corrected Calcium 8.7 8.5-10.1 MG/DL Magnesium Level 2.3 1.6-2.4 MG/DL Total Bilirubin 0.3 0.1-1.0 MG/DL Aspartate Amino Transf (AST/SGOT) 46 H 5-34 U/L Alanine Aminotransferase (ALT/SGPT) 55 0-55 U/L Alkaline Phosphatase 56 40-136 U/L Total Creatine Kinase 1838 H 30-200 U/L Creatine Kinase MB 12.6 *H <6.6 NG/ML Myoglobin 955.9 H 10.0-92.0 NG/ML Troponin I 0.028 <0.028 NG/ML B-Type Natriuretic Peptide 27.0 <100.0 PG/ML Total Protein 7.9 6.4-8.2 GM/DL Albumin 4.4 3.2-4.5 GM/DL Amylase Level 63 25-125 U/L Lipase 22 8-78 U/L Serum Alcohol 307 *H <10 MG/DL Influenza Type A (RT-PCR) Not Detected Not Detecte Influenza Type B (RT-PCR) Not Detected Not Detecte SARS-CoV-2 RNA (RT-PCR) Not Detected Not Detecte Urine Opiates Screen NEGATIVE NEGATIVE Urine Oxycodone Screen NEGATIVE NEGATIVE Urine Methadone Screen NEGATIVE NEGATIVE Urine Propoxyphene Screen NEGATIVE NEGATIVE Urine Barbiturates Screen NEGATIVE NEGATIVE Ur Tricyclic Antidepressants Screen NEGATIVE NEGATIVE Urine Phencyclidine Screen NEGATIVE NEGATIVE Urine Amphetamines Screen NEGATIVE NEGATIVE Urine Methamphetamines Screen NEGATIVE NEGATIVE Urine Benzodiazepines Screen NEGATIVE NEGATIVE Urine Cocaine Screen NEGATIVE NEGATIVE Urine Cannabinoids Screen NEGATIVE NEGATIVE My Orders Orders - KAYE MALDONADO DO Alcohol (03/09/21 01:17) Drug Screen Stat (Urine) (03/09/21 01:17) Cbc With Automated Diff (03/09/21 01:17) Magnesium (03/09/21 01:17) Chest 1 View, Ap/Pa Only (03/09/21 01:17) Ekg Tracing (03/09/21 01:17) Comprehensive Metabolic Panel (03/09/21 01:17) Myoglobin Serum (03/09/21 01:17) Protime With Inr (03/09/21 01:17) Partial Thromboplastin Time (03/09/21 01:17) O2 (03/09/21 01:17) Monitor-Rhythm Ecg Trace Only (03/09/21 01:17) Ed Iv/Invasive Line Start (03/09/21 01:17) Creatine Kinase (03/09/21 01:17) Creatine Kinase Mb (03/09/21 01:17) Lipase (03/09/21 01:17) Amylase (03/09/21 01:17) Bnp Coal (03/09/21 01:17) Troponin I Coal (03/09/21 01:17) Aspirin Chewable Tablet (Baby Aspirin Ch (03/09/21 01:30) Covid 19 Inhouse Test (03/09/21 01:24) Influenza A And B By Pcr (03/09/21 01:24) Isolation Central Supply Req (03/09/21 01:24) Ct Head/Face/Cervical Wo (03/09/21 01:28) Ed Iv/Invasive Line Start (03/09/21 02:34) Lactated Ringers (Lr 1000 Ml Iv Solution (03/09/21 02:45) Ed Iv/Invasive Line Start (03/09/21 03:33) Lactated Ringers (Lr 1000 Ml Iv Solution (03/09/21 03:45) Medications Given in ED Vital Signs/I&O 03/09/21 03/09/21 01:18 05:50 Temp 36.8 Pulse 95 74 Resp 13 19 B/P (MAP) 124/82 (96) 110/50 Pulse Ox 94 100 O2 Delivery Room Air Room Air Capillary Refill : Progress Note : Progress Note SLEPT THROUGH ENTIRE ER STAY PT OBSERVED IN ER NO DETERIORATION IN PT'S CONDITION DURING ER STAY SPEECH IS CLEAR AND GAIT IS STEADY AT DISMISSAL ECG Initial ECG Impression Date: Mar 09, 2021 Initial ECG Impression Time: 01:23 Initial ECG Rate: 97 Initial ECG Rhythm: Normal Sinus (WITH ARTIFACT) Diagnostic Imaging Comments CXR--NO ACUTE PROCESS, PENDING RADIOLOGIST REVIEW CT HEAD/MAXILLOFACIALS/CERVICAL SPINE--PER [facility] VIA FAX AT 2351 NO ACUTE INTRACRANIAL INJURY OR PROCESS. NO ACUTE CERVICAL SPINE INJURY MILD NASAL BONE FRACTURE 4.3 CM RIGHT THYROID MASS. Reviewed: Reviewed by Me Departure Impression Primary Impression: Chest wall pain Additional Impressions: Alcohol intoxication Status post fall Nasal bone fracture Facial contusion Traumatic contusion of left periorbital region Thyroid mass Disposition: HOME, SELF-CARE Condition: Stable Departure-Patient Inst. Decision time for Depature: 05:31 Referrals: NO,LOCAL PHYSICIAN (PCP/Family) Primary Care Physician Patient Instructions: Alcohol Intoxication ED, Black Eye ED, Closed Head Injury (DC), Costochondritis (DC), Nose Fracture ED, Thyroid Nodules Add. Discharge Instructions: NO ALCOHOL!!! TYLENOL NEEDED FOR PAIN ICE TO SORE AREAS AT 20 MINUTE INTERVALS FOLLOW UP WITH OF SWATI FOR FURTHER EVALUATION OF THYROID MASS NOTED ON CT SCAN All discharge instructions reviewed with patient and/or family. Voiced understanding. KAYE MALDONADO DO Mar 09, 2021 02:51
[2021-03-09 03:57] LABS: AMPHETAMINE SCREEN, URINE NEGATIVE (NEGATIVE); BARBITURATE SCREEN URINE NEGATIVE (NEGATIVE); BENZODIAZEPINES SCREEN URINE NEGATIVE (NEGATIVE); CANNABINOID SCREEN, URINE NEGATIVE (NEGATIVE); COCAINE SCREEN URINE NEGATIVE (NEGATIVE); METHADONE STAT NEGATIVE (NEGATIVE); METHAMPHETAMINE SCREEN URINE S NEGATIVE (NEGATIVE); OPIATE SCREEN URINE NEGATIVE (NEGATIVE); OXYCODONE STAT NEGATIVE (NEGATIVE); PROPOXYPHENE STAT NEGATIVE (NEGATIVE); TRICYCLIC ANTIDEPRESSANTS SCRE NEGATIVE (NEGATIVE)
[2021-03-09 05:50] VITALS: BP 110/50
--- NOTE | 2021-03-09 06:17 | Diagnostic Imaging Report ---
INDICATION: Bloody lip. Bruising left eye. Fall. EXAMINATION: Chest 03/09/2021 COMPARISON: 02/18/2021 FINDINGS: The heart and pulmonary vasculature appear normal. The lungs and pleural spaces clear. No infiltrates or effusions. IMPRESSION: Negative chest. Dictated by: Dictated on workstation # [id number]
--- NOTE | 2021-03-09 10:25 | Diagnostic Imaging Report ---
PROCEDURE: CT head, face, and cervical spine without contrast. TECHNIQUE: Multiple contiguous axial images were obtained through the head, neck, and facial bones without the use of intravenous contrast. Sagittal and coronal reformations through the cervical spine and facial bones were also performed. Auto Exposure Controls were utilized during the CT exam to meet ALARA standards for radiation dose reduction. INDICATION: Fall, bloody nose and upper lip, bruising left eye. CT brain CT maxillofacial, CT cervical spine 03/09/2021 COMPARISON: 11/27/2019 BRAIN: FINDINGS: Multiple axial images of the brain without contrast. There is no evidence for acute hemorrhage or infarct. There is no mass, mass effect, midline shift or hydrocephalus. The paranasal sinuses and mastoid air cells demonstrate no acute abnormality. IMPRESSION: No acute intracranial process. CT cervical spine: There is a chronic appearing loss of height throughout the C3-C4 and C5 vertebral body stable from previous imaging. No acute fractures or subluxations appreciated. Nonspecific scattered prominent lymph nodes seen within the neck bilaterally correlate clinically for recent inflammatory or infectious etiology. The lung apices appear clear. IMPRESSION: 1. No acute process in the cervical spine. 2. There is a large low-density lesion within the right lobe of the thyroid gland. Sonographic characterization is recommended. CT maxillofacial: Comminuted fractures of the nasal bones noted bilaterally. Remaining osseous structures appear intact. There is mucosal thickening within the visualized sinuses. There is postoperative change within the mouth with likely braces present. Postoperative changes noted along the mandible. Visualized mastoid air cells clear. IMPRESSION: 1. Bilateral nasal bone fractures. 2. Chronic disease in the visualized sinuses. Dictated by: Dictated on workstation # [id number]
== END 2021-03-09 05:50 | disposition home or self-care (01) ==
LOC: EDUNIT# 01:08 → ER 01:11
DX: R07.89 Other chest pain (principal); F10.129 Alcohol abuse with intoxication, unspecified; Y90.8 Blood alcohol level of 240 mg/100 ml or more; S02.2XXA Fracture of nasal bones, initial encounter for closed fracture; S00.93XA Contusion of unspecified part of head, initial encounter; S00.12XA Contusion of left eyelid and periocular area, initial encounter; E07.9 Disorder of thyroid, unspecified; F17.210 Nicotine dependence, cigarettes, uncomplicated; W19.XXXA Unspecified fall, initial encounter
CPT/HCPCS: 70450; 70486; 71045; 72125; 80053; 80306; 82150; 82550; 82553; 83690; 83735; 83874; 83880; 84484; 85025; 85610; 85730; 87636; 93005; 93041; 96360; 99284; G0480; 36415; 80320